=== PATIENT | male | born 1950 | race American Indian/Alaskan Native ===

== ENCOUNTER 2021-08-30 19:53 | Emergency (ER) | payer MEDICARE, OTHER ==
[2021-08-30] MEDS ORDERED: SODIUM CHLORIDE 0.9% 500 ML 500 ML IV ONE (20:08)
--- NOTE | 2021-08-30 20:08 | Emergency Department Report ---
ED General Adult HPI - General Chief complaint: Syncope Stated complaint: I am having shortness of breath. My stomach is hurting me. I fell out. PUI?: No Time Seen by Provider: 08/30/21 20:00 Source: patient, EMS ( EMS documentation not available at time of chart dictation ), RN notes reviewed Mode of arrival: Stretcher Limitations: Physical Limitation - History of Present Illness Initial comments: Primary CARE doctor: [facility] coordinating physician that I have personally spoken to about this patient's care: Dr. Roberts. She will arrange for admission within one of the [place] hospitalist. The patient is a 70-year-old male. He is not known to myself previously. He presents to the ER today with a complaint of syncope. Patient reports that he "fell out." He is complaining of right-sided abdominal pain. He does not think he hit his head or neck, but he is not certain. He denies chest pain. He also endorses right-sided abdominal pain, and right-sided testicular pain. The patient denies travel, surgery, immobilization, DVT/PE risk factors. He is COVID-19 vaccinated. EMS reports to myself that the patient was hypoxic in the field, to 86%, requiring supplemental oxygen. Patient endorses right-sided testicular pain present for 1 week. He denies urinary symptoms -: Sudden, days(s) (Right-sided testicular pain. Right-sided abdominal pain) Location: abdomen, genitals Radiation: non-radiation Quality: aching Consistency: constant Improves with: none Worsens with: movement (Palpation) - Related Data Allergies Allergy/AdvReac Type Severity Reaction Status Date / Time No Known Allergies Allergy Verified 08/30/21 20:14 ED Review of Systems ROS: Stated complaint: POSSIBLE PE Other details as noted in HPI Constitutional: malaise, weakness. denies: fever Eyes: denies: eye discharge ENT: denies: epistaxis Respiratory: shortness of breath. denies: cough Cardiovascular: syncope. denies: chest pain Gastrointestinal: abdominal pain. denies: hematemesis, melena, hematochezia Genitourinary: testicular pain. denies: dysuria Musculoskeletal: denies: back pain Neurological: weakness Hematological/Lymphatic: denies: easy bleeding ED Physical Exam - General Limitations: Physical Limitation General appearance: alert, anxious - Head Head exam: Present: atraumatic, normocephalic - Eye Eye exam: Present: normal appearance, EOMI. Absent: nystagmus - ENT ENT exam: Present: normal exam, normal orophraynx, mucous membranes moist, normal external ear exam - Neck Neck exam: Present: normal inspection, full ROM. Absent: tenderness, meningismus - Respiratory Respiratory exam: Present: decreased breath sounds. Absent: respiratory distress, wheezes, rales, rhonchi, stridor - Cardiovascular Cardiovascular Exam: Present: normal rhythm, tachycardia. Absent: bradycardia, irregular rhythm, systolic murmur, diastolic murmur, rubs, gallop - GI/Abdominal GI/Abdominal exam: Present: soft, normal bowel sounds. Absent: distended, tenderness, guarding, rigid, pulsatile mass - Rectal Rectal exam: Present: deferred - exam: Present: testicular tenderness (There is right-sided testicular tenderness.), other (Chaperoned by Abram Frazier. Left testicle cremasteric reflex is intact. Decreased masseteric reflex right testicle. Abnormal testicular lie, right testicle) - Extremities Exam Extremities exam: Present: normal inspection, full ROM, other (2+ pulses noted in the bilateral upper and lower extremities. There is no palpable cord. negative Homans sign. Muscular compartments are soft. The pelvis is stable.). Absent: calf tenderness - Back Exam Back exam: Present: normal inspection. Absent: tenderness, CVA tenderness (R), CVA tenderness (L), paraspinal tenderness, vertebral tenderness - Neurological Exam Neurological exam: Present: alert, oriented X3, other (No facial droop. Tongue midline. Extraocular movements intact bilaterally. Facial sensation intact to light touch in V1, V2, V3 distribution bilaterally. 5 and a 5 strength in 4 extremities. Sensation intact to light touch in 4 extremities.). Absent: motor sensory deficit - Psychiatric Psychiatric exam: Present: anxious - Skin Skin exam: Present: warm, dry, intact, normal color. Absent: rash ED Course Vital Signs 08/30/21 08/30/21 08/30/21 20:22 20:27 20:31 Temperature 98.2 F Pulse Rate 105 H 97 H Respiratory 13 17 Rate Blood Pressure 115/44 Blood Pressure 134/53 [Right] O2 Sat by Pulse 96 96 94 Oximetry 08/30/21 21:00 Temperature Pulse Rate 95 H Respiratory 13 Rate Blood Pressure 127/52 Blood Pressure [Right] O2 Sat by Pulse 96 Oximetry - Reevaluation(s) Reevaluation #1: 08/30/21 22:51 Differential diagnosis, including but not limited to: Orthostasis, vagal event, structural cardiac disease, pulmonary embolism, pneumonia, urinary tract infection, AAA, appendicitis, orchitis, epididymitis, testicular torsion electrolyte derangement, thyroid deranged 08/30/21 22:52 Assessment and plan: 70-year-old gentleman with multiple complaints, including unprovoked syncope, found to have acute hypoxic respiratory failure, clinically sober with a GCS of 15, noncontrast CT scan of the brain negative for acute findings, patient is clinically sober at this time. The cervical spine is clear ed through nexus and mosotho c spine rule, CT scan chest shows no pulmonary embolism, but multi lobar pneumonia, requiring supplemental oxygen. Fluids, blood cultures, antibiotics ordered. Given heart rate greater than 90, white blood cell count 12,000 and chest x-ray findings, patient meets sepsis criteria. Laboratory studies otherwise nonactionable, urinalysis is pending. Patient also complained of abdominal pain, given advanced age, and complaint of syncope, CT scan abdomen pelvis obtained to exclude time sensitive emergent conditions, such as AAA, dissection, and appendicitis. These are not demonstrated on CT scan abdomen pelvis. He is found to have atherosclerotic disease, iliac stenosis, nonspecific adrenal inflammation, this is of uncertain significance, lymphadenopathy, and also was found to have sigmoid colon abnormality. He has no diarrhea, I do not clinically suspect colitis at this time. I am concerned that this may represent a malignancy. He also has right-sided testicular pain and tenderness, present for 1 week. Cremasteric reflex intact in the left testicle. It appears to be partially intact in the right testicle. Given hypoxia, we are going to hold narcotics at this time. Tylenol for pain. Hold NSAIDs at this time, given platelet inhibition. Continue IV fluids, antibiotics and supplemental oxygen. Contacted [place] physician, . Dr Roberts Have discussed the patient's history, physical, laboratory studies imaging studies, overall clinical impression. She is seeking to make arrangements for admission with one of the [place] core facilities. Of also discussed this plan of care with the patient and significant other. They have articulated understanding. 08/30/21 23:24 Dr Roberts to accept to [facility] Medical Decision Making - Lab Data Result diagrams: 08/30/21 20:28 08/30/21 20:28 Vital Signs 08/30/21 08/30/21 20:22 20:27 Temperature 98.2 F Pulse Rate 105 H Respiratory 13 Rate Blood Pressure 134/53 [Right] O2 Sat by Pulse 96 96 Oximetry Lab Results 08/30/21 08/30/21 08/30/21 Range/Units 20:28 20:28 20:28 WBC 12.7 H (4.5-11.0) K/mm3 RBC 3.86 (3.65-5.03) M/mm3 Hgb 12.1 (11.8-15.2) gm/dl Hct 36.3 (35.5-45.6) % MCV 94 (84-94) fl MCH 31 (28-32) pg MCHC 33 (32-34) % RDW 12.6 L (13.2-15.2) % Plt Count 322 (140-440) K/mm3 Lymph % (Auto) 10.7 L (13.4-35.0) % [place] % (Auto) 7.4 H (0.0-7.3) % Eos % (Auto) 0.5 (0.0-4.3) % Baso % (Auto) 0.3 (0.0-1.8) % Lymph # (Auto) 1.4 (1.2-5.4) K/mm3 [place] # (Auto) 0.9 H (0.0-0.8) K/mm3 Eos # (Auto) 0.1 (0.0-0.4) K/mm3 Baso # (Auto) 0.0 (0.0-0.1) K/mm3 Seg Neutrophils % 81.1 H (40.0-70.0) % Seg Neutrophils # 10.3 H (1.8-7.7) K/mm3 PT (12.2-14.9) Sec. INR (0.87-1.13) D-Dimer (0-234) ng/mlDDU Sodium (137-145) mmol/L Potassium (3.6-5.0) mmol/L Chloride (98-107) mmol/L Carbon Dioxide (22-30) mmol/L Anion Gap mmol/L BUN (9-20) mg/dL Creatinine (0.8-1.3) mg/dL Estimated GFR ml/min BUN/Creatinine Ratio % Glucose (75-100) mg/dL Calcium (8.4-10.2) mg/dL Magnesium 1.90 (1.7-2.3) mg/dL Total Bilirubin (0.1-1.2) mg/dL AST (5-40) units/L ALT (7-56) units/L Alkaline Phosphatase (35-129) units/L Total Creatine Kinase 102 (55-170) units/L Troponin T (0.00-0.029) ng/mL Total Protein (6.3-8.2) g/dL Albumin (3.9-5) g/dL Albumin/Globulin Ratio % TSH 2.360 (0.270-4.200) mlU/mL Blood Type Antibody Screen 08/30/21 08/30/21 08/30/21 Range/Units 20:28 20:28 20:28 WBC (4.5-11.0) K/mm3 RBC (3.65-5.03) M/mm3 Hgb (11.8-15.2) gm/dl Hct (35.5-45.6) % MCV (84-94) fl MCH (28-32) pg MCHC (32-34) % RDW (13.2-15.2) % Plt Count (140-440) K/mm3 Lymph % (Auto) (13.4-35.0) % [place] % (Auto) (0.0-7.3) % Eos % (Auto) (0.0-4.3) % Baso % (Auto) (0.0-1.8) % Lymph # (Auto) (1.2-5.4) K/mm3 [place] # (Auto) (0.0-0.8) K/mm3 Eos # (Auto) (0.0-0.4) K/mm3 Baso # (Auto) (0.0-0.1) K/mm3 Seg Neutrophils % (40.0-70.0) % Seg Neutrophils # (1.8-7.7) K/mm3 PT 13.9 (12.2-14.9) Sec. INR 0.96 (0.87-1.13) D-Dimer 272.35 H (0-234) ng/mlDDU Sodium 137 (137-145) mmol/L Potassium 3.5 L (3.6-5.0) mmol/L Chloride 100.0 (98-107) mmol/L Carbon Dioxide 21 L (22-30) mmol/L Anion Gap 20 mmol/L BUN 23 H (9-20) mg/dL Creatinine 1.3 (0.8-1.3) mg/dL Estimated GFR > 60 ml/min BUN/Creatinine Ratio 18 % Glucose 123 H (75-100) mg/dL Calcium 9.0 (8.4-10.2) mg/dL Magnesium 1.90 (1.7-2.3) mg/dL Total Bilirubin 0.30 (0.1-1.2) mg/dL AST 13 (5-40) units/L ALT 13 (7-56) units/L Alkaline Phosphatase 63 (35-129) units/L Total Creatine Kinase (55-170) units/L Troponin T < 0.010 (0.00-0.029) ng/mL Total Protein 7.4 (6.3-8.2) g/dL Albumin 4.0 (3.9-5) g/dL Albumin/Globulin Ratio 1.2 % TSH (0.270-4.200) mlU/mL Blood Type B POSITIVE Antibody Screen Negative - EKG Data -: EKG Interpreted by Tn EKG shows normal: sinus rhythm Rate: normal - EKG Data When compared to previous EKG there are: previous EKG unavailable 08/30/21 22:16 The EKG is interpreted at 20: 21 Sinus rhythm, rate 97 bpm. Normal axis, left ventricular hypertrophy, normal P wave axis, motion artifact, the QTC is 4 8 6 ms. This is an abnormal EKG. This is not a STEMI. - Radiology Data Radiology results: pending, report reviewed, image reviewed CT HEAD WITHOUT CONTRAST INDICATION / CLINICAL INFORMATION: Syncope. TECHNIQUE: All CT scans at this location are performed using CT dose reduction for ALARA by means of automated exposure control. COMPARISON: None available. FINDINGS: HEMORRHAGE: No evidence of intracranial hemorrhage or extra-axial fluid collection. EXTRA-AXIAL SPACES: Cortical sulci, sylvian fissures and basilar cisterns have an unremarkable appearance. VENTRICULAR SYSTEM: The third and lateral ventricles are of normal size and configuration. CEREBRAL PARENCHYMA: No areas of abnormal brain parenchymal attenuation are identified. There is no indication of recent infarction. MIDLINE SHIFT OR HERNIATION: There is no mass effect. CEREBELLUM / BRAINSTEM: Brainstem and cerebellum have an unremarkable appearance. MIDLINE STRUCTURES:No abnormalities of the pituitary gl and or pineal region are identified. INTRACRANIAL VESSELS: Calcified atherosclerotic plaque is seen along the course the cavernous segments of both internal carotid arteries. Similar changes are seen at the distal left vertebral artery. ORBITS: visualized portions of the orbits have an unremarkable appearance. SOFT TISSUES of HEAD: No significant abnormality. CALVARIUM: Evaluation of bone windows reveals no abnormalities. PARANASAL SINUSES / MASTOID AIR CELLS: Visualized portions of the paranasal sinuses are free from inflammatory mucosal disease. Mastoid air cells are normally pneumatized. IMPRESSION: 1. No acute intracranial abnormality. Signer Name: Hardik Ramirez MD Signed: 08/30/2021 8:57 PM Workstation Name: [id number] CTA CHEST WITH IV CONTRAST INDICATION: Acute onset chest pain with dyspnea. Syncope with hypoxia. TECHNIQUE: Axial CT images were obtained through the chest after injection of 100 mL Omnipaque 350 IV contrast. 3 plane MIP reconstructions were produced. All CT scans at this location are performed using CT dose reduction for ALARA by means of automated exposure control. COMPARISON: None available. FINDINGS: PULMONARY ARTERIES: No pulmonary emboli. AORTA AND ARTERIES: No acute abnormality. Extensive coronary artery calcification. MEDIASTINUM: Mild mediastinal adenopathy, likely reactive. The heart size is normal. Extensive coronary artery calcification. Tiny pericardial effusion. LUNGS: Multifocal bronchopneumonia identified within the right middle lobe and both lower lobes. Mild bronchial wall thickening. ADDITIONAL FINDINGS: None. UPPER ABDOMEN: No acute findings. BONES: No significant osseous abnormality. IMPRESSION: 1. No CT evidence for pulmonary embolism. 2. Severe multifocal bronchopneumonia primarily within both lower lobes but also the right middle lobe. Signer Name: Arnie Betancourt MD Signed: 08/30/2021 9:07 PM Workstation Name: [id number] CHEST 1 VIEW INDICATION / CLINICAL INFORMATION: Syncope, hypoxia. FINDINGS: SUPPORT DEVICES: None. HEART / MEDIASTINUM: No significant abnormality. LUNGS / PLEURA: No significant pulmonary or pleural abnormality. No pneumothorax. ADDITIONAL FINDINGS: No significant additional findings. IMPRESSION: 1. No acute findings. Signer Name: Arnie Betancourt MD Signed: 08/30/2021 7:50 PM Workstation Name: [employer] CT abdomen pelvis w con INDICATION / CLINICAL INFORMATION: Lower abdominal pain, syncope. TECHNIQUE: Routine CT abdomen pelvis following 100 mL Omnipaque 300. All CT scans at this location are performed using CT dose reduction for ALARA by means of automated exposure control. COMPARISON: None available. FINDINGS: Abdomen and pelvis: Lower lobe bronchopneumonia as previously described The liver, gallbladder, pancreas are unremarkable. The spleen contai ns several peripheral hyperdensity suspicious for small infarcts. The stomach is fluid distended but there is some increased mucosal thickening in enhancement of the gastric mucosa. Tiny nonobstructive left-sided nephrolithiasis. No hydronephrosis. The right kidney is unremarkable. Severe atherosclerotic calcification throughout a nondilated abdominal aorta. Both adrenal glands demonstrate mild adjacent thickening and periadrenal stranding. Several borderline enlarged retroperitoneal nodes are present. There is diffuse colonic diverticulosis. There is prominent thickening identified involving the mid sigmoid colon. Urinary bladder is unremarkable. There is mild thoracolumbar degenerative change. Review of bone windows demonstrates severe thoracolumbar degenerative changes. IMPRESSION: 1. Abnormal thickening of the sigmoid colon which could be secondary to underlying colitis. Given the degree of thickening colonoscopy is suggested following treatment to ensure there is no underlying colonic mass. 2. Nonspecific adrenal stranding/inflammation. 3. Severe atherosclerotic calcification throughout the abdominal aorta with extension into both iliac arteries. There appears to be high-grade stenosis involving the right common external iliac arteries. Signer Name: Arnie Betancourt MD Signed: 08/30/2021 9:12 PM US TESTICULAR DOPPLER COMP INDICATION / CLINICAL INFORMATION: Testicular pain, right-sided. COMPARISON: None available. FINDINGS: The right testicle measures 2.4 x 2.3 x 2.2 cm and the left testicle 2.5 x 1.8 x 1.8 cm. Both testicles demonstrate a normal echo pattern without mass or other abnormality. There is normal blood flow to both testicles on Doppler exam. There is marked enlargement of the right epididymis which demonstrates markedly increased blood flow on Doppler exam. There is a mild associated right hydrocele. The left epididymis is normal. There is no evidence of a varicocele or other abnormality. IMPRESSION: 1. Markedly enlarged hypervascular right epididymis is characteristic of epididymitis. There is a mild associated right hydrocele. 2. No evidence of testicular mass or torsion. Signer Name: Tae Dsouza MD Si gned: 08/30/2021 10:30 PM Workstation Name: [id number] Critical care attestation.: If time is entered above; I have spent that time in minutes in the direct care of this critically ill patient, excluding procedure time. ED Disposition Clinical Impression: Syncope, Pneumonia, SIRS (systemic inflammatory response syndrome), Acute res piratory failure with hypoxia, Adrenal incidentaloma, PAD (peripheral artery disease), Right iliac artery stenosis, Nephrolithiasis, Coronary artery calcification seen on CAT scan, Right testicular pain Disposition: 02 SHORT TERM HOSPITAL Is pt being admited?: No Does the pt Need Aspirin: No Condition: Good Instructions: Syncope (ED), Bacterial Pneumonia (ED)
--- NOTE | 2021-08-30 20:55 | XRay Report ---
CHEST 1 VIEW INDICATION / CLINICAL INFORMATION: Syncope, hypoxia. FINDINGS: SUPPORT DEVICES: None. HEART / MEDIASTINUM: No significant abnormality. LUNGS / PLEURA: No significant pulmonary or pleural abnormality. No pneumothorax. ADDITIONAL FINDINGS: No significant additional findings. IMPRESSION: 1. No acute findings. Signer Name: Arnie Betancourt MD Signed: 08/30/2021 8:50 PM Workstation Name: [id number]
[2021-08-30 21:02] LABS: Alanine Aminotransferase 13 units/L (7-56); BUN/Creatinine Ratio 18; Blood Urea Nitrogen 23 mg/dL (9-20); Hemolysis Index 13
[2021-08-30 21:12] LABS: Basophils % (Auto) 0.3 % (0.0-1.8); Eosinophils # (Auto) 0.1 K/mm3 (0.0-0.4); Eosinophils % (Auto) 0.5 % (0.0-4.3); Hematocrit 36.3 % (35.5-45.6); Hemoglobin 12.1 gm/dl (11.8-15.2); Lymphocytes # (Auto) 1.4 K/mm3 (1.2-5.4); Lymphocytes % (Auto) 10.7 % (13.4-35.0); Mean Corpuscular HGB Conc 33 % (32-34); Mean Corpuscular Volume 94 fl (84-94); Monocytes # (Auto) 0.9 K/mm3 (0.0-0.8); Monocytes % (Auto) 7.4 % (0.0-7.3); Platelet Count 322 K/mm3 (140-440); Red Blood Count 3.86 M/mm3 (3.65-5.03); Red Cell Distribution Width 12.6 % (13.2-15.2)
[2021-08-30 21:23] LABS: INR 0.96 (0.87-1.13)
--- NOTE | 2021-08-30 22:01 | Cat Scan Report ---
CT HEAD WITHOUT CONTRAST INDICATION / CLINICAL INFORMATION: Syncope. TECHNIQUE: All CT scans at this location are performed using CT dose reduction for ALARA by means of automated e xposure control. COMPARISON: None available. FINDINGS: HEMORRHAGE: No evidence of intracranial hemorrhage or extra-axial fluid collection. EXTRA-AXIAL SPACES: Cortical sulci, sylvian fissures and basilar cisterns have an unremarkable appear ance. VENTRICULAR SYSTEM: The third and lateral ventricles are of normal size and configuration. CEREBRAL PARENCHYMA: No areas of abnormal brain parenchymal attenuation are identified. There is no i ndication of recent infarction. MIDLINE SHIFT OR HERNIATION: There is no mass effect. CEREBELLUM / BRAINSTEM: Brainstem and cerebellum have an unremarkable appearance. MIDLINE STRUCTURES:No abnormalities of the pituitary gland or pineal region are identified. INTRACRANIAL VESSELS: Calcified atherosclerotic plaque is seen along the course the cavernous segment s of both internal carotid arteries. Similar changes are seen at the distal left vertebral artery. ORBITS: visualized portions of the orbits have an unremarkable appearance. SOFT TISSUES of HEAD: No significant abnormality. CALVARIUM: Evaluation of bone windows reveals no abnormalities. PARANASAL SINUSES / MASTOID AIR CELLS: Visualized portions of the paranasal sinuses are free from inf lammatory mucosal disease. Mastoid air cells are normally pneumatized. IMPRESSION: 1. No acute intracranial abnormality. Signer Name: Hardik Ramirez MD Signed: 08/30/2021 9:57 PM Workstation Name: [id number]
--- NOTE | 2021-08-30 22:11 | Cat Scan Report ---
CTA CHEST WITH IV CONTRAST INDICATION: Acute onset chest pain with dyspnea. Syncope with hypoxia. TECHNIQUE: Axial CT images were obtained through the chest after injection of 100 mL Omnipaque 350 IV contrast. 3 plane MIP reconstructions were produced. All CT scans at this location are performed using CT dose reduction for ALARA by means of automated exposure control. COMPARISON: None available. FINDINGS: PULMONARY ARTERIES: No pulmonary emboli. AORTA AND ARTERIES: No acute abnormality. Extensive coronary artery calcification. MEDIASTINUM: Mild mediastinal adenopathy, likely reactive. The heart size is normal. Extensive devlin ry artery calcification. Tiny pericardial effusion. LUNGS: Multifocal bronchopneumonia identified within the right middle lobe and both lower lobes. Mild bronchial wall thickening. ADDITIONAL FINDINGS: None. UPPER ABDOMEN: No acute findings. BONES: No significant osseous abnormality. IMPRESSION: 1. No CT evidence for pulmonary embolism. 2. Severe multifocal bronchopneumonia primarily within both lower lobes but also the right middle lob e. Signer Name: Arnie Betancourt MD Signed: 08/30/2021 10:07 PM Workstation Name: [id number]
[2021-08-30] MEDS ORDERED: ACETAMINOPHEN 325 MG TAB PO ONE (22:14)
[2021-08-30] MEDS ORDERED: AZITHROMYCIN/NS 500 MG/250 ML 500 MG/250 ML BAG IV ONE (22:14)
[2021-08-30] MEDS ORDERED: cefTRIAXone/NS 1 GM/50 ML 1 GM/50 ML BAG IV ONE (22:14)
--- NOTE | 2021-08-30 22:17 | Cat Scan Report ---
CT abdomen pelvis w con INDICATION / CLINICAL INFORMATION: Lower abdominal pain, syncope. TECHNIQUE: Routine CT abdomen pelvis following 100 mL Omnipaque 300. All CT scans at this location are performed using CT dose reduction for ALARA by means of automated exposure control. COMPARISON: None available. FINDINGS: Abdomen and pelvis: Lower lobe bronchopneumonia as previously described The liver, gallbladder, pancreas are unremarkable. The spleen contains several peripheral hyperdensit y suspicious for small infarcts. The stomach is fluid distended but there is some increased mucosal t hickening in enhancement of the gastric mucosa. Tiny nonobstructive left-sided nephrolithiasis. No hy dronephrosis. The right kidney is unremarkable. Severe atherosclerotic calcification throughout a non dilated abdominal aorta. Both adrenal glands demonstrate mild adjacent thickening and periadrenal stranding. Several borderlin e enlarged retroperitoneal nodes are present. There is diffuse colonic diverticulosis. There is prominent thickening identified involving the mid s igmoid colon. Urinary bladder is unremarkable. There is mild thoracolumbar degenerative change. Review of bone windows demonstrates severe thoracolumbar degenerative changes. IMPRESSION: 1. Abnormal thickening of the sigmoid colon which could be secondary to underlying colitis. Given the degree of thickening colonoscopy is suggested following treatment to ensure there is no underlying c olonic mass. 2. Nonspecific adrenal stranding/inflammation. 3. Severe atherosclerotic calcification throughout the abdominal aorta with extension into both iliac arteries. There appears to be high-grade stenosis involving the right common external iliac arteries . Signer Name: Arnie Betancourt MD Signed: 08/30/2021 10:12 PM Workstation Name: [id number]
--- NOTE | 2021-08-30 23:34 | Ultrasound Report ---
US TESTICULAR DOPPLER COMP INDICATION / CLINICAL INFORMATION: Testicular pain, right-sided. COMPARISON: None available. FINDINGS: The right testicle measures 2.4 x 2.3 x 2.2 cm and the left testicle 2.5 x 1.8 x 1.8 cm. Both testicl es demonstrate a normal echo pattern without mass or other abnormality. There is normal blood flow to both testicles on Doppler exam. There is marked enlargement of the right epididymis which demonstrates markedly increased blood flow on Doppler exam. There is a mild associated right hydrocele. The left epididymis is normal. There is no evidence of a varicocele or other abnormality. IMPRESSION: 1. Markedly enlarged hypervascular right epididymis is characteristic of epididymitis. There is a mil d associated right hydrocele. 2. No evidence of testicular mass or torsion. Signer Name: Tae Dsouza MD Signed: 08/30/2021 11:30 PM Workstation Name: [id number]
[2021-08-31 02:40] VITALS: BP 112/62
== END 2021-08-31 03:01 | disposition short-term general hospital (02) ==
LOC: ED 19:53
DX: J18.9 Pneumonia, unspecified organism (principal); R65.10 Systemic inflammatory response syndrome (SIRS) of non-infectious origin without acute organ dysfunction; R55 Syncope and collapse; J96.01 Acute respiratory failure with hypoxia; E27.9 Disorder of adrenal gland, unspecified; I73.9 Peripheral vascular disease, unspecified; I77.1 Stricture of artery; N20.2 Calculus of kidney with calculus of ureter
CPT/HCPCS: 36415; 70450; 71045; 71275; 74177; 80053; 82140; 82550; 83735; 84443; 84484; 85025; 85379; 85610; 86850; 86900; 86901; 87040; 93005; 93975; 96365; 96367; 99285; J0456; J0696; J7040; Q9967